=== PATIENT | female | born 1980 | race Asian ===

== ENCOUNTER 2021-04-14 16:24 | Outpatient (CLI) | payer OTHER | END 2021-04-14 16:25 | disposition home or self-care (01) | LOC: ULT 16:24 | PROVIDERS: ATTEND Family Medicine | DX: N85.2 Hypertrophy of uterus (principal); E55.9 Vitamin D deficiency, unspecified; E66.3 Overweight | CPT/HCPCS: 76856 ==

== ENCOUNTER 2021-04-16 10:49 | Outpatient (CLI) | payer OTHER | END 2021-04-16 10:50 | disposition home or self-care (01) | LOC: RAD 10:49 | PROVIDERS: ATTEND Family Medicine | DX: R05.9 Cough, unspecified (principal) | CPT/HCPCS: 71046 ==